=== PATIENT | female | born 2000 | race Caucasian/White ===

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

== ENCOUNTER 2020-05-12 17:52 | Emergency (ER) | payer MEDICAID, SELFPAY ==
[2020-05-12 19:55] LABS: #Basophils 0.1 thou/uL (0.0-0.2); #Eosinphils 0.1 thou/uL (0.0-0.7); #Lymphocytes 2.4 thou/uL (1.20-3.40); #Monocytes 0.4 thou/uL (0.11-0.59); #Neutrophils 3.6 thou/uL (1.40-6.50); %Basophils 0.9 % (0.0-1.0); %Eosinophils 2.1 % (0.0-10.0); %Lymphocytes 36.4 % (28.0-48.0); %Monocytes 6.5 % (0.0-4.0); %Neutrophils 54.1 % (31.0-61.0); Hemoglobin 14.7 g/dL (12.0-16.0); Mean Corpuscular HGB CONC 32.3 g/dL (32.0-36.0); Mean Corpuscular Hemoglobin 28.6 pg (25.0-35.0); Mean Corpuscular Volume 88.8 fL (78.0-98.0); Mean Platelet Volume 8.7 fL (7.4-10.4); Platelet Count 240 thou/uL (130-400); Red Blood Cell (RBC) Count 5.14 mill/uL (4.00-5.20); White Blood Cell (WBC) Count 6.7 thou/uL (4.8-10.8)
[2020-05-12 19:58] LABS: Bilirubin Negative (Negative); Blood, Urine Negative (Negative); Clarity Clear (Clear); Glucose, Urine (Dipstick) Negative (Negative); Ketone, Urine Negative (Negative); Leukocyte Negative (Negative); Nitrite Negative (Negative); Protein, Urine (Dipstick) Negative (Neg-Trace); Urobilinogen 0.2 mg/dL (Less than 2); pH, Urine 7.5 (5.0-9.0)
[2020-05-12 20:02] LABS: Pregnancy Test - Urine (BHCG) Negative (Negative); Pregu Control Background? CLEAR/WHITE (CLR/WHITE); Pregu Control Bar Appear? YES (CONTROL BAR)
[2020-05-12] MEDS ORDERED: Ketorolac Tromethamine 30 MG/ML VIAL ONE (20:08)
[2020-05-12 20:22] LABS: ALT (SGPT) 20 U/L (8-55); AST (SGOT) 20 U/L (5-34); Albumin 4.5 g/dL (3.5-5.0); Alkaline Phosphatase 57 U/L (40-100); Anion Gap 16 mmol/L (10-20); BUN (Urea Nitrogen) 9 mg/dL (7.0-18.7); Bilirubin, Total 0.5 mg/dL (0.2-1.2); Calc. Creatinine Clearance 0 mL/min (70-130); Calcium 9.6 mg/dL (7.8-10.44); Carbon Dioxide 23 mmol/L (22-29); Chloride 106 mmol/L (98-107); Globulin 3.1 g/dL (2.4-3.5); Glucose 97 mg/dL (70-105); Protein, Total 7.6 g/dL (6.0-8.3); Sodium 141 mmol/L (136-145)
[2020-05-14 21:21] LABS: Chlam.trachomatis by PCR,Urine Not Detected (NotDetected)
== END 2020-05-12 22:39 | disposition home or self-care (01) ==
LOC: MADERS 17:52
DX: R10.31 Right lower quadrant pain (principal); F17.210 Nicotine dependence, cigarettes, uncomplicated
CPT/HCPCS: 80053; 81003; 81025; 83605; 85025; 87491; 87591; 96374; J1885

== ENCOUNTER 2022-04-19 14:57 | Emergency (ER) | payer SELFPAY ==
[2022-04-19] MEDS ORDERED: diphenhydrAMINE 25 MG CAP ONE (15:49)
[2022-04-19] MEDS ORDERED: Famotidine 20 MG TAB ONE (15:49)
[2022-04-19] MEDS ORDERED: predniSONE 20 MG TAB ONE (15:49)
== END 2022-04-19 17:43 | disposition home or self-care (01) ==
LOC: MADERS 14:57
DX: L23.9 Allergic contact dermatitis, unspecified cause (principal); F17.210 Nicotine dependence, cigarettes, uncomplicated
CPT/HCPCS: 99283; J7512

== ENCOUNTER 2022-05-27 02:29 | Emergency (ER) | payer SELFPAY | END 2022-05-27 03:01 | disposition home or self-care (01) | LOC: MADERS 02:29 | DX: F10.129 Alcohol abuse with intoxication, unspecified (principal); F41.9 Anxiety disorder, unspecified; F17.210 Nicotine dependence, cigarettes, uncomplicated; Z79.899 Other long term (current) drug therapy | CPT/HCPCS: 99284 ==

== ENCOUNTER 2022-09-24 03:54 | Emergency (ER) | payer SELFPAY ==
[2022-09-24] MEDS ORDERED: Lorazepam 2 MG/ML VIAL ONE ×2 (04:02→04:12)
[2022-09-24] MEDS ORDERED: Ipratropium/Albuterol 3 ML NEB ONE (04:07)
[2022-09-24 04:10] LABS: #Basophils 0.1 thou/uL (0.0-0.2); #Eosinphils 0.1 thou/uL (0.0-0.7); #Lymphocytes 3.9 thou/uL (1.20-3.40); #Monocytes 0.4 thou/uL (0.11-0.59); #Neutrophils 3.6 thou/uL (1.40-6.50); %Basophils 1.2 % (0.0-1.0); %Eosinophils 0.8 % (0.0-10.0); %Lymphocytes 48.9 % (21.0-51.0); %Monocytes 4.7 % (0.0-10.0); %Neutrophils 44.3 % (42.0-75.0); Hemoglobin 14.9 g/dL (12.0-16.0); Mean Corpuscular HGB CONC 33.7 g/dL (32.0-36.0); Mean Corpuscular Hemoglobin 29.6 pg (27.0-31.0); Mean Corpuscular Volume 87.7 fl (78.0-98.0); Platelet Count 317 10x3/uL (130-400); RBC Distribution Width 11.4 % (11.5-14.5); Red Blood Cell (RBC) Count 5.04 mill/uL (4.20-5.40)
[2022-09-24] MEDS ORDERED: Propofol 1,000 MG/100 ML VIAL IV ONE (04:10)
[2022-09-24] MEDS ORDERED: levETIRAcetam 500 MG/5 ML VIAL ONE (04:12)
[2022-09-24 04:30] LABS: Bilirubin Negative (Negative); Blood, Urine Negative (Negative); Clarity Clear (Clear); Glucose, Urine (Dipstick) Negative (Negative); Ketone, Urine Negative (Negative); Leukocyte Negative (Negative); Nitrite Negative (Negative); Protein, Urine (Dipstick) Negative (Neg-Trace); Urobilinogen 0.2 mg/dL (Less than 2)
[2022-09-24 04:32] LABS: Pregnancy Test - Urine (BHCG) Negative (Negative); Pregu Control Background? CLEAR/WHITE (CLR/WHITE); Pregu Control Bar Appear? YES (CONTROL BAR)
[2022-09-24 04:36] LABS: ALT (SGPT) 13 U/L (8-55); AST (SGOT) 17 U/L (5-34); Albumin 4.9 g/dL (3.5-5.0); Alkaline Phosphatase 55 U/L (40-110); Anion Gap 21 mmol/L (10-20); BUN (Urea Nitrogen) 5 mg/dL (7.0-18.7); Bilirubin, Total 0.3 mg/dL (0.2-1.2); Calc. Creatinine Clearance 0 mL/min (70-130); Calcium 9.3 mg/dL (7.8-10.44); Carbon Dioxide 16 mmol/L (22-29); Chloride 111 mmol/L (98-107); Estimated GFR 87; Globulin 2.8 g/dL (2.4-3.5); Glucose 114 mg/dL (70-105); Potassium 3.6 mmol/L (3.5-5.1); Protein, Total 7.7 g/dL (6.0-8.3); Sodium 144 mmol/L (136-145)
[2022-09-24 04:37] LABS: Acetaminophen Less than 10.0 mcg/mL (10.0-30.0); Alcohol 248 mg/dL (Less than 10); Salicylate Less than 8.0 mg/dL (15.0-30.0)
[2022-09-24 04:37] LABS: Amphetamine Not Detected (NotDetected); Barbiturates Screen Not Detected (NotDetected); Benzodiazepine Screen Not Detected (NotDetected); Cocaine Metabolite Screen Not Detected (NotDetected); Methadone Not Detected (NotDetected); Methamphetamine Not Detected (NotDetected); Opiate Screen Not Detected (NotDetected); Oxycodone Screen Not Detected (NotDetected); Phencyclidine (PCP) Not Detected (NotDetected); THC/Cannabinoid Screen Not Detected (NotDetected); Tricyclic Screen Not Detected (NotDetected)
[2022-09-24] MEDS ORDERED: Sodium Chloride 0.9% 1,000 ML BAG ONE (06:33)
== END 2022-09-24 05:19 | disposition short-term general hospital (02) ==
LOC: MADERS 03:54
DX: R56.9 Unspecified convulsions (principal); F17.290 Nicotine dependence, other tobacco product, uncomplicated
CPT/HCPCS: 36416; 70450; 72125; 80053; 80306; 80307; 81003; 81025; 83605; 85025; 93005; 96361; 96374; J1953; J2060; J2704; J7050; J7620

== ENCOUNTER 2023-04-07 15:57 | Emergency (ER) | payer OTHER | END 2023-04-07 17:21 | disposition home or self-care (01) | LOC: MADERS 15:57 | DX: S93.402A Sprain of unspecified ligament of left ankle, initial encounter (principal); Z87.891 Personal history of nicotine dependence; W18.42XA Slipping, tripping and stumbling without falling due to stepping into hole or opening, initial encounter ==

== ENCOUNTER 2024-12-23 12:19 | Emergency (ER) | payer OTHER, SELFPAY ==
[2024-12-23] MEDS ORDERED: Ibuprofen 600 MG TAB ONE (12:50)
== END 2024-12-23 13:09 | disposition home or self-care (01) ==
LOC: MADERS 12:19
DX: U07.1 COVID-19 (principal); F17.290 Nicotine dependence, other tobacco product, uncomplicated
CPT/HCPCS: 87081; 87426; 87430; 99283